=== PATIENT | male | born 1995 | race Caucasian/White ===

== ENCOUNTER 2020-11-02 15:57 | Emergency (ER) | payer SELFPAY ==
[~2020-11-02] VITALS: Ht 182.9 cm; Wt 62.1 kg
[2020-11-02 16:37] LABS: BASOPHILS % (AUTO) 0 % (0-1); EOSINOPHILS % (AUTO) 1 % (1-7); LYMPHOCYTES % (AUTO) 16 % (22-44); MD NO; MEAN CORPUSCULAR HEMOGLOBIN 28.7 pg (27.5-34.5); MEAN CORPUSCULAR HGB CONC 34.4 g/dL (33.2-36.2); MEAN PLATELET VOLUME 7.6 fL (7.4-10.4); MONOCYTES % (AUTO) 8 % (2-9); NEUTROPHILS % (AUTO) 75 % (42-75); PLATELET COUNT 335 x10^3/uL (130-400); RED BLOOD COUNT 5.23 x10^6/uL (4.38-5.82); RED CELL DISTRIBUTION WIDTH 12.6 % (9.4-14.8)
[2020-11-02 16:46] LABS: ALBUMIN 4.2 g/dL (3.4-5.0); ANION GAP 8 mmol/L (5-15); CALCIUM 9.7 mg/dL (8.5-10.1); CHLORIDE 103 mmol/L (98-107)
[2020-11-02 16:48] LABS: CREATININE 1.17 mg/dL (0.7-1.3)
--- NOTE | 2020-11-02 17:48 | NUR ---
continuous towel roller note: Pt to room from lobby.
--- NOTE | 2020-11-02 18:59 | NUR ---
REPORT TO EDGARD LEONARDO
--- NOTE | 2020-11-02 19:09 | NUR ---
REPORT RECEIVED FROM BARRY LEONARDO
--- NOTE | 2020-11-02 19:40 | NUR ---
PT BACK FROM IMAGING. FRIEND AT BEDSIDE
[2020-11-02] MEDS ORDERED: OMNIPAQUE 350 MG/ML, 100ML BOTTLE ONE (19:43)
[2020-11-02 20:38] VITALS: BP 117/83
== END 2020-11-02 20:40 | disposition home or self-care (01) ==
LOC: ED 18:33
DX: B34.9 Viral infection, unspecified (principal); Z20.822 Contact with and (suspected) exposure to COVID-19; R00.0 Tachycardia, unspecified; I49.3 Ventricular premature depolarization; I51.7 Cardiomegaly
CPT/HCPCS: 36415; 71045; 71275; 80048; 82040; 85025; 87635; 93005; 99285; Q9967

== ENCOUNTER 2021-01-01 20:40 | Emergency (ER) | payer BC ==
[~2021-01-01] VITALS: Ht 182.9 cm; Wt 63.8 kg
[2021-01-01 20:42] VITALS: BP 123/88
[2021-01-01] MEDS ORDERED: METHOCARBAMOL 750 MG TABLET ONE (21:21)
--- NOTE | 2021-01-01 21:23 | NUR ---
PT BACK FROM XRAY. 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
[2021-01-01] MEDS ORDERED: METHOCARBAMOL 750 MG TABLET PO ONE (21:30)
--- NOTE | 2021-01-01 22:16 | NUR ---
ALL RESULTS ARE BACK AT THIS TIME. CHART UP FOR RECHECK.
[2021-01-01] MEDS ORDERED: KETOROLAC 30 MG/1 ML IM ONE (22:30)
== END 2021-01-01 22:43 | disposition home or self-care (01) ==
LOC: ED 21:10
DX: M54.41 Lumbago with sciatica, right side (principal); R00.0 Tachycardia, unspecified
CPT/HCPCS: 72110; 99283